=== PATIENT | female | born 1945 | race Caucasian/White ===

== ENCOUNTER 2018-03-06 19:35 | Observation (INO) ==
[2018-03-06 20:22] LABS: Basophils % 0.6 % (0.0-0.8); Eosinophils # 0.3 10*3/uL (0.0-0.87); Hematocrit 32.9 VOL% (35.7-47.0); Hemoglobin 11.2 GM/DL (12.0-16.0); Immature Granulocytes % 0.4 %; Immature Granulocytes Absolute 0.03 #; Lymphocytes % 30.4 % (21.3-54.2); Mean Corpuscular Hemoglobin 29 PG (27-34); Mean Corpuscular Volume 85.7 FL (87-102); Mean Platelet Volume 9.8 FL (9.6-12.0); Monocytes # 0.8 10*3/uL (0.11-0.8); Monocytes % 11.8 % (1.7-12.7); Neutrophils # 3.6 10*3/uL (1.4-7.4); Neutrophils % 52.8 % (38.7-73.9); Platelet Count 120 T/CUMM (130-400); Red Blood Count 3.84 MC/CUMM (3.8-5.5); Red Cell Distribution Width 13.5 % (9.3-17.3); White Blood Count 6.7 T/CUMM (4-12)
[2018-03-06] MEDS ORDERED: ACETAMINOPHEN 325 MG TABLET PO PRN (22:56)
[2018-03-06] MEDS ORDERED: ONDANSETRON ODT 4 MG TABLET PO PRN (22:56)
[2018-03-06] MEDS ORDERED: ENOXAPARIN 100 MG/ML SYRINGE SUBCUT STA (23:00)
[2018-03-06 23:23] LABS: Albumin 3.2 G/DL (3.4-5.0); Bilirubin,Total 0.6 MG/DL (0.2-1.0); Calcium 8.2 MG/DL (8.5-10.1); Osmolality,Calculated 285.2 MOS/KG (273-304); Total Protein 7.3 G/DL (6.4-8.3)
[2018-03-07 07:09] LABS: Basophils # 0.1 10*3/uL (0.0-0.2); Basophils % 0.6 % (0.0-0.8); Eosinophils # 0.3 10*3/uL (0.0-0.87); Hematocrit 32.5 VOL% (35.7-47.0); Hemoglobin 10.8 GM/DL (12.0-16.0); Immature Granulocytes % 0.5 %; Immature Granulocytes Absolute 0.04 #; Lymphocytes # 2.3 10*3/uL (1.4-4.0); Lymphocytes % 27.6 % (21.3-54.2); Mean Corpuscular HGB Conc 33.2 GM/DL (32-36); Mean Corpuscular Hemoglobin 29 PG (27-34); Mean Corpuscular Volume 86.9 FL (87-102); Mean Platelet Volume 10.4 FL (9.6-12.0); Monocytes # 0.9 10*3/uL (0.11-0.8); Monocytes % 11.2 % (1.7-12.7); Neutrophils # 4.6 10*3/uL (1.4-7.4); Neutrophils % 56.1 % (38.7-73.9); Platelet Count 142 T/CUMM (130-400); Red Blood Count 3.74 MC/CUMM (3.8-5.5); Red Cell Distribution Width 13.5 % (9.3-17.3); White Blood Count 8.3 T/CUMM (4-12)
[2018-03-07 07:36] LABS: Albumin 3.1 G/DL (3.4-5.0); Bilirubin,Total 0.6 MG/DL (0.2-1.0); Calcium 8.6 MG/DL (8.5-10.1); Potassium 4.5 MMOL/L (3.5-5.1); Total Protein 7.2 G/DL (6.4-8.3)
[2018-03-07] MEDS ORDERED: ATORVASTATIN 40 MG TABLET PO SCH (09:00)
[2018-03-07] MEDS ORDERED: Cevimeline Hcl [Cevimeline Hcl] 30 MG PO SCH (09:00)
[2018-03-07] MEDS: sitaGLIPtin 25 MG TABLET PO SCH ×2 (09:23→22:00)
[2018-03-07] MEDS: FUROSEMIDE 40 MG TABLET PO SCH (09:23)
[2018-03-07] MEDS: RANOLAZINE 500 MG TABLET PO SCH ×2 (09:24→22:00)
[2018-03-07] MEDS: metFORMIN 500 MG TABLET PO SCH ×2 (09:24→22:06)
[2018-03-07] MEDS: CLOPIDOGREL 75 MG TABLET PO SCH (09:24)
[2018-03-07] MEDS: PANTOPRAZOLE 40 MG TABLET PO SCH (09:24)
[2018-03-07] MEDS: ASPIRIN EC 81 MG TABLET PO SCH (09:24)
[2018-03-07] MEDS: ATENOLOL 25 MG TABLET PO SCH (09:25)
[2018-03-07] MEDS: INSULIN GLARGINE 100 UNIT/ML SUBCUT SCH (09:31)
[2018-03-07] MEDS: DOCUSATE SODIUM 100 MG CAPSULE PO SCH ×3 (09:33→22:00)
[2018-03-07] MEDS: PREGABALIN 75 MG CAPSULE PO SCH ×2 (09:33→21:59)
[2018-03-07] MEDS: rOPINIRole 1 MG TABLET PO SCH ×3 (09:34→22:00)
[2018-03-07] MEDS: GABAPENTIN 600 MG TABLET PO SCH ×3 (09:34→22:00)
[2018-03-07] MEDS: NITROGLYCERIN 0.4 MG/HR PATCH TRANSDERM SCH (09:38)
[2018-03-07] MEDS: ENOXAPARIN 80 MG/0.8 ML SYRINGE SUBCUT SCH ×2 (11:23→22:00)
[2018-03-08] MEDS: ASPIRIN EC 81 MG TABLET PO SCH (09:39)
[2018-03-08] MEDS: CLOPIDOGREL 75 MG TABLET PO SCH (09:40)
[2018-03-08] MEDS: PANTOPRAZOLE 40 MG TABLET PO SCH (09:40)
[2018-03-08] MEDS: metFORMIN 500 MG TABLET PO SCH (09:40)
[2018-03-08] MEDS: PREGABALIN 75 MG CAPSULE PO SCH (09:40)
[2018-03-08] MEDS: sitaGLIPtin 25 MG TABLET PO SCH (09:40)
[2018-03-08] MEDS: INSULIN GLARGINE 100 UNIT/ML SUBCUT SCH (09:40)
[2018-03-08] MEDS: GABAPENTIN 600 MG TABLET PO SCH (09:40)
[2018-03-08] MEDS: ATENOLOL 25 MG TABLET PO SCH (09:40)
[2018-03-08] MEDS: rOPINIRole 1 MG TABLET PO SCH (09:40)
[2018-03-08] MEDS: DOCUSATE SODIUM 100 MG CAPSULE PO SCH (09:40)
[2018-03-08] MEDS: FUROSEMIDE 40 MG TABLET PO SCH (09:40)
[2018-03-08] MEDS: RANOLAZINE 500 MG TABLET PO SCH (09:40)
[2018-03-08] MEDS: NITROGLYCERIN 0.4 MG/HR PATCH TRANSDERM SCH (10:02)
[2018-03-08] MEDS: ENOXAPARIN 80 MG/0.8 ML SYRINGE SUBCUT SCH (10:22)
[2018-03-08] MEDS ORDERED: MUPIROCIN 2% OINT 22 GM TUBE TOP SCH (11:30)
[2018-03-08 13:04] VITALS: BP 118/68
== END 2018-03-08 12:25 | disposition home or self-care (01) ==
LOC: N.ED 19:35 → N.EDINP 19:35 → N.5E 23:41
PROVIDERS: ADMIT Family Medicine; ATTEND Family Medicine